=== PATIENT | male | born 1975 | race Caucasian/White ===

== ENCOUNTER 2017-06-29 12:45 | Outpatient (CLI) | payer BC ==
--- NOTE | 2017-06-29 14:04 | Diagnostic Imaging Report ---
Indication: Cough Comparison: None 2 views of the chest obtained. Findings: Cardiomediastinal silhouette and pulmonary vascularity are within normal limits for age. The diaphragmatic contour is smooth and costophrenic angles are sharp. No pleural effusions are identified. The bones are unremarkable. Impression: No acute disease
== END 2017-06-29 14:45 | disposition home or self-care (01) ==
LOC: RAD 12:45
DX: R07.9 Chest pain, unspecified (principal); R05 Cough
CPT/HCPCS: 71020